=== PATIENT | male | born 1970 | race Caucasian/White ===

== ENCOUNTER 2018-01-09 00:36 | Emergency (ER) | payer BC ==
[2018-01-09] MEDS ORDERED: Sodium Chloride 0.9% 5 ML Syringe FLUSH PRN (00:47)
--- NOTE | 2018-01-09 00:55 | EDM.PDOC ---
ED HPI GENERAL MEDICAL PROBLEM - General Chief Complaint: Cardiovascular Problem Stated Complaint: Short of breath Time Seen by Provider: 01/09/18 00:47 Source of Information: Reports: Patient History Limitations: Reports: No Limitations - History of Present Illness INITIAL COMMENTS - FREE TEXT/NARRATIVE: Patient is a 47-year-old gentleman who presents to the emergency department this morning with a complaint of shortness of breath. Patient states that at approximately 1900 yesterday while walking from the car to the house he felt short of breath. When inside the house, took a shower and had intermittent periods of feeling he couldn't take a deep breath. States that chest felt a little tight. 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 Denies any head trauma, fever, nausea, vomiting, diarrhea, abdominal pain, extremity edema, or family cardiac issues at an early age. Onset: Gradual Onset Date: 01/08/18 Onset Time: 19:00 Duration: Hour(s):, Intermittent Location: Reports: Chest Quality: Reports: Pressure Severity: Mild Improves with: Reports: None Worsens with: Reports: None Context: Reports: Other (at rest) Associated Symptoms: Reports: Chest Pain, Shortness of Breath - Related Data Allergies Allergy/AdvReac Type Severity Reaction Status Date / Time No Known Allergies Allergy Verified 01/09/18 00:49 Home Meds: Home Meds Ibuprofen 400 mg PO Q6HR PRN 01/09/18 [History] Venlafaxine HCl [Venlafaxine ER] 75 mg PO DAILY 01/09/18 [History] Venlafaxine HCl [Venlafaxine ER] 300 mg PO DAILY 01/09/18 [History] traZODone HCl [Trazodone HCl] 50 mg PO BEDTIME 01/09/18 [History] ED ROS GENERAL - Review of Systems Review Of Systems: ROS reveals no pertinent complaints other than HPI. Constitutional: Reports: No Symptoms HEENT: Reports: No Symptoms Respiratory: Reports: Shortness of Breath Cardiovascular: Reports: Chest Pain Endocrine: Reports: No Symptoms GI/Abdominal: Reports: No Symptoms : Reports: No Symptoms Musculoskeletal: Reports: No Symptoms Skin: Reports: No Symptoms Neurological: Reports: No Symptoms Psychiatric: Reports: Anxiety Hematologic/Lymphatic: Reports: No Symptoms Immunologic: Reports: No Symptoms ED EXAM, GENERAL - Physical Exam Exam: See Below Exam Limited By: No Limitations General Appearance: Alert, WD/WN, No Apparent Distress Nose: Normal Inspection, Normal Mucosa, No Blood Throat/Mouth: Normal Inspection, Normal Oropharynx, No Airway Compromise Head: Atraumatic, Normocephalic Neck: Normal Inspection, Supple, Non-Tender Respiratory/Chest: No Respiratory Distress, Lungs Clear, Normal Breath Sounds, No Accessory Muscle Use, Chest Non-Tender Cardiovascular: Normal Peripheral Pulses, Regular Rate, Rhythm, No Murmur, No Rub GI/Abdominal: Normal Bowel Sounds, Soft, Non-Tender, No Organomegaly, No Distention, No Abnormal Bruit, No Mass Back Exam: Normal Inspection. No: CVA Tenderness (L), CVA Tenderness (R) Extremities: Normal Inspection, No Pedal Edema Neurological: Alert, Oriented, Normal Cognition Psychiatric: Normal Affect, Normal Mood Skin Exam: Warm, Dry, Intact, Normal Color, No Rash Lymphatic: No Adenopathy EKG INTERPRETATION EKG Date: 01/09/18 Time: 01:10 Rhythm: NSR Rate (Beats/Min): 70 [place]: Normal P-Wave: Present QRS: Normal ST-T: Normal QT: Normal Comparison: NA - No Prior EKG Course - Vital Signs Last Recorded V/S: Last Vital Signs Temp 98.2 F 01/09/18 00:47 Pulse 77 01/09/18 00:47 Resp 20 01/09/18 00:47 BP 148/96 H 01/09/18 00:47 Pulse Ox 100 01/09/18 00:47 - Orders/Labs/Meds Orders: Active Orders 24 hr Category Date Time Status Cardiac Monitoring [RC] . DIRECTED Care 01/09/18 00:47 Ordered EKG Documentation Completion [RC] ASDIRECTED Care 01/09/18 00:49 Ordered Peripheral IV Care [RC] . DIRECTED Care 01/09/18 00:49 Ordered Chest 1V Frontal [CR] Stat Exams 01/09/18 00:48 Ordered Sodium Chloride 0.9% [Syrex Flush] Med 01/09/18 00:47 Ordered 5 ml FLUSH Q8HR PRN Peripheral IV Insertion Adult [OM.PC] Stat Oth 01/09/18 00:47 Ordered Saline Lock Insert [OM.PC] Stat Oth 01/09/18 00:47 Ordered EKG 12 Lead [EK] Stat Ther 01/09/18 00:48 Ordered Medication Orders Sodium Chloride (Syrex Flush) 5 ml FLUSH Q8HR PRN PRN Reason: Keep Vein Open Labs: Laboratory Tests 01/09/18 01/09/18 Range/Units 01:00 01:00 WBC 7.5 (5.0-10.0) 10^3/uL RBC 5.14 (4.50-6.00) 10^6/uL Hgb 15.9 (13.0-17.0) g/dL Hct 46.7 (40.0-52.0) % MCV 90.8 (82.0-92.0) fL MCH 30.9 (27.0-31.0) pg MCHC 34.0 (32.0-36.0) g/dL RDW 12.8 (11.5-14.5) % Plt Count 151 (150-300) 10^3/uL MPV 8.8 (7.4-10.4) fL Neut % (Auto) 64.3 (50.0-70.0) % Lymph % (Auto) 25.3 (20.0-40.0) % Love % (Auto) 9.4 H (2.0-8.0) % Eos % (Auto) 0.5 L (1.0-3.0) % Baso % (Auto) 0.5 (0.0-1.0) % Neut # (Auto) 4.9 (2.5-7.0) 10^3/uL Lymph # (Auto) 1.9 (1.0-4.0) 10^3/uL Love # (Auto) 0.7 (0.1-0.8) 10^3/uL Eos # (Auto) 0.0 L (0.1-0.3) 10^3/uL Baso # (Auto) 0.0 (0.0-0.1) 10^3/uL Sodium 141 (136-145) mmol/L Potassium 3.5 (3.3-5.3) mmol/L Chloride 105 (98-115) mmol/L Carbon Dioxide 27.6 (21.0-32.0) mmol/L Anion Gap 11.9 (5-15) mmol/L BUN 17 (6-25) mg/dL Creatinine 1.02 (0.51-1.17) mg/dL Est Cr Clr Drug Dosing 96.15 mL/min Estimated GFR (MDRD) > 60 mL/min Glucose 102 (70-110) mg/dL Calcium 8.7 (8.7-10.3) mg/dL Magnesium 2.2 (1.8-2.4) mg/dL Total Bilirubin 0.4 (0.2-1.0) mg/dL AST 23 (15-37) U/L ALT 29 (12-78) U/L Alkaline Phosphatase 52 (46-116) IU/L Troponin I < 0.04 (0.00-0.070) ng/mL Total Protein 7.8 (6.4-8.2) g/dL Albumin 4.14 (3.00-4.80) g/dL Lipase 145 (73-393) U/L Meds: Medications Generic Name Dose Route Start Last Admin Trade Name Freq PRN Reason Stop Dose Admin Sodium Chloride 5 ml 01/09/18 00:47 Syrex Flush FLUSH Q8HR PRN Keep Vein Open - Radiology Interpretation Free Text/Narrative:: One view chest x-ray shows no acute cardiopulmonary process - Re-Assessments/Exams Free Text/Narrative Re-Assessment/Exam: 01/09/18 01:47 Patient afebrile, nontoxic appearing, vital signs stable. Denies chest pain or shortness of breath while in the emergency department. Departure - Departure Time of Disposition: 01:47 Disposition: Home, Self-Care 01 Condition: Good Clinical Impression: Atypical chest pain, SOB (shortness of breath) Instructions: Shortness of Breath, Adult, [id number], Nonspecific Chest Pain , [id number] Forms: ED Department Discharge Additional Instructions: Follow-up with PCP in the next 2-3 days. Return to the emergency department sooner if symptoms continue or worsen. - My Orders Last 24 Hours: My Active Orders 01/09/18 00:47 Cardiac Monitoring [RC] . DIRECTED Sodium Chloride 0.9% [Syrex Flush] 5 ml FLUSH Q8HR PRN Peripheral IV Insertion Adult [OM.PC] Stat Saline Lock Insert [OM.PC] Stat 01/09/18 00:48 Chest 1V Frontal [CR] Stat EKG 12 Lead [EK] Stat 01/09/18 00:49 EKG Documentation Completion [RC] ASDIRECTED Peripheral IV Care [RC] . DIRECTED - Assessment/Plan Last 24 Hours: My Active Orders 01/09/18 00:47 Cardiac Monitoring [RC] . DIRECTED Sodium Chloride 0.9% [Syrex Flush] 5 ml FLUSH Q8HR PRN Peripheral IV Insertion Adult [OM.PC] Stat Saline Lock Insert [OM.PC] Stat 01/09/18 00:48 Chest 1V Frontal [CR] Stat EKG 12 Lead [EK] Stat 01/09/18 00:49 EKG Documentation Completion [RC] ASDIRECTED Peripheral IV Care [RC] . DIRECTED Assessment:: Atypical chest pain, shortness of breath Plan: Follow up with PCP in 2 days
[2018-01-09 01:43] LABS: ANION GAP 11.9 mmol/L (5-15); CHLORIDE,CL 105 mmol/L (98-115); SODIUM,NA 141 mmol/L (136-145)
== END 2018-01-09 02:00 | disposition home or self-care (01) ==
LOC: KA.ED 00:36
DX: R07.89 Other chest pain (principal); R06.02 Shortness of breath; Z79.899 Other long term (current) drug therapy
CPT/HCPCS: 71045; 80053; 83690; 83735; 84484; 85025; 93005; 99285

== ENCOUNTER 2020-10-28 19:09 | Emergency (ER) | payer BC ==
[2020-10-28] MEDS ORDERED: Ondansetron 4 MG/2 ML SDV IVPUSH ONE (19:32)
[2020-10-28] MEDS ORDERED: Sodium Chloride 0.9% 1,000 ML IV ONE (19:32)
--- NOTE | 2020-10-28 20:01 | EDM.PDOC ---
ED HPI GENERAL MEDICAL PROBLEM - General Chief Complaint: General Stated Complaint: N/V DEHYDRATED? Time Seen by Provider: 10/28/20 19:46 Source of Information: Reports: Patient, Significant Other History Limitations: Reports: No Limitations - History of Present Illness INITIAL COMMENTS - FREE TEXT/NARRATIVE: Patient presents with nausea, mid-epigastric pain and fatigue. This started around noon today but he didn't feel real well before he went to [employer] this morning either. He has also had some dyspnea but no cough, or chest pain or tightness. He vomited once about 2-3 hours ago. Epigastric Pain Score (Numeric/FACES): 8 Mid Back Pain Score (Numeric/FACES): 5 - Related Data Allergies Allergy/AdvReac Type Severity Reaction Status Date / Time No Known Allergies Allergy Verified 10/28/20 19:44 Home Meds: Home Meds Ibuprofen 400 mg PO Q6HR PRN 01/09/18 [History] Venlafaxine HCl [Venlafaxine ER] 300 mg PO DAILY 01/09/18 [History] Gabapentin [Neurontin] 300 mg PO DAILY 10/28/20 [History] LORazepam [Ativan] 1 mg PO BEDTIME 10/28/20 [History] Past Medical History Gastrointestinal History: Reports: Other (See Below) Other Gastrointestinal History: colitis Musculoskeletal History: Reports: Amputation Other Musculoskeletal History: traumatic finger amputation Neurological History: Reports: Other (See Below) Other Neuro History: numbness in 2 fingers from a disc problem. did have headaches but he had injections and now they are gone Psychiatric History: Reports: Anxiety - Infectious Disease History Infectious Disease History: Reports: Chicken Pox - Past Surgical History GI Surgical History: Reports: Colonoscopy Neurological Surgical History: Reports: C-Spine, Discectomy Social & Family History - Family History Family Medical History: No Pertinent Family History - Caffeine Use Caffeine Use: Reports: Soda ED ROS GENERAL - Review of Systems Review Of Systems: See Below Constitutional: Reports: Malaise, Weakness, Fatigue. Denies: Fever, Chills HEENT: Reports: Ear Pain, Throat Pain, Vision Change Respiratory: Reports: Shortness of Breath. Denies: Cough Cardiovascular: Denies: Chest Pain, Lightheadedness, Syncope Endocrine: Reports: Fatigue GI/Abdominal: Reports: Abdominal Pain, Diarrhea, Nausea, Vomiting : Denies: Dysuria, Flank Pain Musculoskeletal: Denies: Neck Pain, Shoulder Pain, Arm Pain, Back Pain Skin: Denies: Cyanosis, Jaundice, Mottled, Pallor, Diaphoresis Neurological: Denies: Confusion, Dizziness, Headache, Seizure, Syncope, Trouble Speaking, Difficulty Walking Psychiatric: Denies: Agitation, Anxiety, Confusion ED EXAM, GENERAL - Physical Exam Exam: See Below Exam Limited By: No Limitations General Appearance: Alert, WD/WN, No Apparent Distress Eye Exam: Bilateral Eye: EOMI, Normal Inspection, PERRL Ears: Normal External Exam, Hearing Grossly Normal Nose: Normal Inspection, No Blood Throat/Mouth: Normal Inspection, Normal Lips, Normal Voice, No Airway Compromise Head: Atraumatic, Normocephalic Neck: Normal Inspection, Full Range of Motion Respiratory/Chest: No Respiratory Distress, Lungs Clear, Normal Breath Sounds, No Accessory Muscle Use Cardiovascular: Normal Peripheral Pulses, Regular Rate, Rhythm, No Edema, No Gallop, No JVD, No Murmur Peripheral Pulses: 2+: Radial (L), Radial (R), Posterior Tibial (L), Posterior Tibial (R) GI/Abdominal: Normal Bowel Sounds, Soft, No Organomegaly, No Distention, No Abnormal Bruit, No Mass, Tender (epigastrium). No: Distended, Guarding, Rigid Back Exam: Normal Inspection, Full Range of Motion. No: CVA Tenderness (L), CVA Tenderness (R) Extremities: Normal Inspection, Normal Range of Motion, Non-Tender, No Pedal Edema Neurological: Alert, Oriented, Normal Cognition, No Motor/Sensory Deficits Psychiatric: Normal Affect, Normal Mood Skin Exam: Warm, Dry, Intact, Normal Color, No Rash Course - Vital Signs Last Recorded V/S: Last Vital Signs Temp 99.4 F 10/28/20 19:37 Pulse 94 10/28/20 19:37 Resp 20 10/28/20 19:37 BP 159/93 H 10/28/20 19:37 Pulse Ox 97 10/28/20 19:37 - Orders/Labs/Meds Orders: Active Orders 24 hr Category Date Time Status EKG Documentation Completion [RC] ASDIRECTED Care 10/28/20 20:00 Ordered EKG 12 Lead [EK] Stat Ther 10/28/20 20:00 Ordered Labs: Laboratory Tests 04/25/21 04/25/21 04/25/21 Range/Units 19:30 19:30 19:30 WBC 8.89 (5.00-10.00) 10^3/uL RBC 5.44 (4.50-6.00) 10^6/uL Hgb 17.1 H (13.0-17.0) g/dL Hct 48.5 (40.0-52.0) % MCV 89.2 (82.0-92.0) fL MCH 31.4 H (27.0-31.0) pg MCHC 35.3 (32.0-36.0) g/dL RDW 13.0 (11.5-14.5) % Plt Count 131 L (150-400) 10^3/uL MPV 11.0 H (7.4-10.4) fL Add Manual Diff Yes Neutrophils % (Manual) 92 H (50-70) % Lymphocytes % (Manual) 6 L (20-40) % Monocytes % (Manual) 2 (2-8) % Absolute Neutrophils 8.1788 Lymphocytes # (Manual) 0.5334 Monocytes # (Manual) 0.1778 Sodium 142 (136-145) mmol/L Potassium 4.0 (3.5-5.1) mmol/L Chloride 103 (98-107) mmol/L Carbon Dioxide 25.3 (21.0-32.0) mmol/L Anion Gap 17.7 H (5-15) mmol/L BUN 15 (7-18) mg/dL Creatinine 1.01 (0.51-1.17) mg/dL Est Cr Clr Drug Dosing 94.97 mL/min Estimated GFR (MDRD) > 60 mL/min Glucose 109 (70-140) mg/dL Calcium 8.4 L (8.7-10.3) mg/dL Total Bilirubin 0.7 (0.2-1.0) mg/dL AST 18 (15-37) U/L ALT 31 (14-63) U/L Alkaline Phosphatase 59 (46-116) U/L Troponin I < 0.017 (0.000-0.056) ng/mL Total Protein 7.5 (6.4-8.2) g/dL Albumin 4.07 (3.40-5.00) g/dL Lipase 96 (73-393) U/L Meds: Medications Discontinued Medications Generic Name Dose Route Start Last Admin Trade Name Freq PRN Reason Stop Dose Admin Cyclobenzaprine HCl 10 mg 10/28/20 20:34 10/28/20 20:40 Cyclobenzaprine 10 Mg Tab PO 10/28/20 20:35 10 mg ONETIME ONE Administration Hydromorphone HCl 1 mg 10/28/20 20:34 10/28/20 20:41 Hydromorphone 1 Mg/Ml Syringe IVPUSH 10/28/20 20:35 1 mg ONETIME ONE Administration Sodium Chloride 1,000 mls @ 999 mls/hr 10/28/20 19:32 10/28/20 19:36 Normal Saline IV 10/28/20 20:32 999 mls/hr .BOLUS ONE Administration Ketorolac Tromethamine 30 mg 10/28/20 20:34 10/28/20 20:40 Ketorolac 30 Mg/Ml Sdv IVPUSH 10/28/20 20:35 30 mg ONETIME ONE Administration Ondansetron HCl 4 mg 10/28/20 19:32 10/28/20 19:36 Ondansetron 4 Mg/2 Ml Sdv IVPUSH 10/28/20 19:33 4 mg ONETIME ONE Administration - Re-Assessments/Exams Free Text/Narrative Re-Assessment/Exam: 10/28/20 20:36 His abdominal pain is less now after the zofran and fluids but his back pain is quite painful. 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 Morrow for injections and Baclofen. He was recently started on Lorazepam and didn't know if he could take Baclofen with it so hasn't had that in last two weeks. Will give some cyclobenzaprine, dilaudid and toradol now. Renal function looks good. Labs okay. EKG shows NSR. 10/28/20 21:20 Patient is feeling better and rates pain down from 8 to 4. He still does have some pain in both the back and the epigastrium but tolerable now. We discussed imaging but he says this abdominal pain he has been dealing with for 30+ years and has had evaluated thoroughly without any definite etiology. Stress and anxiety may be involved. He follows quite closely with Dr. Morrow and will recheck with him or another [facility] provider tomorrow if not improving further. Discharged to home in stable condition. Departure - Departure Time of Disposition: 21:18 Disposition: Home, Self-Care 01 Condition: Good Clinical Impression: Epigastric pain, Chronic back pain greater than 3 months duration - Discharge Information Referrals: Yvette Brunner MD [Primary Care Provider] - Forms: ED Department Discharge Additional Instructions: Drink 8 cups of water daily. Continue your regular medications. Follow up in 1-2 days with your PCP if this persists or worsens. Sepsis Event Note (ED) - Evaluation Sepsis Screening Result: No Definite Risk - Focused Exam Vital Signs: Vital Signs Temp Pulse Resp BP Pulse Ox 10/28/20 19:37 99.4 F 94 20 159/93 H 97 - My Orders Last 24 Hours: My Active Orders 10/28/20 20:00 EKG Documentation Completion [RC] ASDIRECTED EKG 12 Lead [EK] Stat - Assessment/Plan Last 24 Hours: My Active Orders 10/28/20 20:00 EKG Documentation Completion [RC] ASDIRECTED EKG 12 Lead [EK] Stat
[2020-10-28 20:22] LABS: ANION GAP 17.7 mmol/L (5-15); CHLORIDE,CL 103 mmol/L (98-107); SODIUM,NA 142 mmol/L (136-145)
[2020-10-28] MEDS ORDERED: HYDROmorphone 1 MG/ML Syringe IVPUSH ONE (20:34)
[2020-10-28] MEDS ORDERED: Cyclobenzaprine 10 MG Tab PO ONE (20:34)
[2020-10-28] MEDS ORDERED: Ketorolac 30 MG/ML SDV IVPUSH ONE (20:34)
== END 2020-10-28 21:30 | disposition home or self-care (01) ==
LOC: KA.ED 19:09
DX: R10.13 Epigastric pain (principal); G89.29 Other chronic pain; M54.5 Low back pain
CPT/HCPCS: 36415; 80053; 83690; 84484; 85025; 93005; 96374; 96375; 99284; A9270; J1170; J1885; J2405; J7030

== ENCOUNTER 2020-10-29 06:50 | Emergency (ER) | payer BC ==
[2020-10-29 07:16] VITALS: BP 117/79; PULSE 83
--- NOTE | 2020-10-29 07:46 | EDM.PDOC ---
ED HPI GENERAL MEDICAL PROBLEM - General Chief Complaint: Back Pain or Injury Stated Complaint: MID UPPER GASTRIC/BACK PAIN Time Seen by Provider: 10/29/20 07:25 Source of Information: Reports: Patient, Significant Other History Limitations: Reports: No Limitations - History of Present Illness INITIAL COMMENTS - FREE TEXT/NARRATIVE: Patient presents again to ER with a return of same symptoms, primarily tight, painful muscles in the middle back. I saw him about 7 or 8 hours ago in ER with the same symptoms. At first it seemed to be primarily epigastric pain which responded moderately to IV fluids and Zofran. Then the back pain was primary. He told me that he has been seeing Dr. Morrow for both of these problems for several years, the abdominal pain since the late he said. We had discussed CT last night which he declined. I had treated the back pain with Dilaudid, Toradol, and cyclobenzaprine which helped significantly but not completely. At discharge he was concerned that he wouldn't be able to sleep. Today he says the same symptoms are back with the back pain primary. He did take another Baclofen this morning without relief. His tells me that he hasn't had a "flair" like this in a long time. Lower Back Pain Score (Numeric/FACES): 8 - Related Data Allergies Allergy/AdvReac Type Severity Reaction Status Date / Time No Known Allergies Allergy Verified 10/29/20 07:09 Home Meds: Home Meds Venlafaxine HCl [Venlafaxine ER] 300 mg PO DAILY 01/09/18 [History] Gabapentin [Neurontin] 300 mg PO DAILY 10/28/20 [History] LORazepam [Ativan] 1 mg PO BEDTIME 10/28/20 [History] Baclofen 10 mg PO BEDTIME PRN 10/29/20 [History] Cyclobenzaprine [Flexeril] 10 mg PO TID PRN 10/29/20 [History] Past Medical History HEENT History: Reports: Other (See Below) Other HEENT History: Astigmatism, presbyopia, and myopia of bilateral eyes. Gastrointestinal History: Reports: Other (See Below) Other Gastrointestinal History: colitis Musculoskeletal History: Reports: Amputation Other Musculoskeletal History: traumatic finger amputation, cervical disc herniation. Neurological History: Reports: Other (See Below) Other Neuro History: numbness in 2 fingers from a disc problem. did have headaches but he had injections and now they are gone Psychiatric History: Reports: Anxiety, Depression, Other (See Below) Other Psychiatric History: Major Depressive Disorder. - Infectious Disease History Infectious Disease History: Reports: Chicken Pox - Past Surgical History GI Surgical History: Reports: Colonoscopy Neurological Surgical History: Reports: C-Spine, Discectomy Musculoskeletal Surgical History: Reports: Other (See Below) Other Musculoskeletal Surgeries/Procedures:: Fusion of C6-7 in 2017. Social & Family History - Family History Family Medical History: No Pertinent Family History - Tobacco Use Tobacco Use Status *Q: Never Tobacco User - Caffeine Use Caffeine Use: Reports: Soda - Recreational Drug Use Recreational Drug Use: No ED ROS GENERAL - Review of Systems Review Of Systems: See Below Constitutional: Denies: Fever, Chills HEENT: Reports: No Symptoms Respiratory: Reports: No Symptoms Cardiovascular: Reports: No Symptoms Endocrine: Reports: No Symptoms GI/Abdominal: Reports: Abdominal Pain, Diarrhea (once during night). Denies: Vomiting : Reports: No Symptoms Musculoskeletal: Reports: Back Pain. Denies: Neck Pain, Shoulder Pain, Arm Pain, Leg Pain Skin: Reports: No Symptoms Neurological: Denies: Confusion, Dizziness, Headache, Seizure, Syncope, Trouble Speaking, Difficulty Walking Psychiatric: Reports: Anxiety. Denies: Agitation, Confusion ED EXAM,LOWER BACK PAIN/INJURY - Physical Exam Exam: See Below Exam Limited By: No Limitations General Appearance: Alert, WD/WN, No Apparent Distress Eye Exam: Bilateral Eye: EOMI, Normal Inspection, PERRL Ears: Normal External Exam, Hearing Grossly Normal Nose: Normal Inspection, No Blood Throat/Mouth: Normal Inspection, Normal Voice, No Airway Compromise Head: Atraumatic, Normocephalic Neck: Normal Inspection, Full Range of Motion Respiratory/Chest: No Respiratory Distress, Lungs Clear, Normal Breath Sounds Cardiovascular: Regular Rate, Rhythm, No Murmur GI/Abdominal: Normal Bowel Sounds, Soft, No Organomegaly, No Distention, Tender (mildly throughout, nonfocal). No: Distended, Guarding, Rigid Back Exam: Muscle Spasm (generally tight), Paraspinal Tenderness (thoracic to upper lumbar bilateral) Extremities: Normal Inspection, Normal Range of Motion Neurological: Alert, Normal Mood/Affect, Normal Dorsiflexion, Normal Plantar Flexion, No Motor/Sensory Deficits, Oriented x 3 Psychiatric: Normal Affect, Normal Mood Skin Exam: Warm, Dry, Intact, Normal Color, No Rash Course - Vital Signs Last Recorded V/S: Last Vital Signs Temp 97.2 F 10/29/20 07:09 Pulse 83 10/29/20 07:09 Resp 22 H 10/29/20 07:09 BP 117/79 10/29/20 07:09 Pulse Ox 98 10/29/20 07:09 - Orders/Labs/Meds Meds: Medications Discontinued Medications Generic Name Dose Route Start Last Admin Trade Name Jil PRN Reason Stop Dose Admin Methylprednisolone Sodium Succinate 125 mg 10/29/20 08:20 10/29/20 08:26 Methylprednisolone Sodium Succinate 125 Mg/2 Ml Sdv IM 10/29/20 08:21 125 mg ONETIME ONE Administration - Re-Assessments/Exams Free Text/Narrative Re-Assessment/Exam: 10/29/20 10:04 Discussed findings and treatment plan with patient and his . He is feeling only a little better after solu-medrol IM but we discussed that this should improve. He will start the medrol dosepack tomorrow morning and follow up with PCP this week. Discharged to home in stable condition. 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 If there is no improvement in 24 hours follow up in clinic. Otherwise follow up in clinic within 5-7 days for recheck and consideration of longer-term treatment. This may include NSAIDS, physical therapy, trigger point injections, etc. Sepsis Event Note (ED) - Evaluation Sepsis Screening Result: No Definite Risk - Focused Exam Vital Signs: Vital Signs Temp Pulse Resp BP Pulse Ox 10/29/20 07:09 97.2 F 83 22 H 117/79 98
[2020-10-29] MEDS: methylPREDNISolone Sodium Succinate 125 MG/2 ML SDV IM ONE (08:26)
== END 2020-10-29 08:45 | disposition home or self-care (01) ==
LOC: KA.ED 06:50
DX: M62.830 Muscle spasm of back (principal); Z79.899 Other long term (current) drug therapy
CPT/HCPCS: 96372; 99283; J2930